=== PATIENT | female | born 1980 | race Caucasian/White ===

== ENCOUNTER 2024-11-25 16:26 | Outpatient (CLI) | payer BC, SELFPAY | END 2024-11-25 16:27 | disposition home or self-care (01) | LOC: NFLDREF 11-27 23:52 | PROVIDERS: PCP Family Medicine; Referring Provider Family Medicine; Visit Provider Family Medicine | DX: R30.0 Dysuria (principal); R35.89 Other polyuria; R39.9 Unspecified symptoms and signs involving the genitourinary system; N39.0 Urinary tract infection, site not specified | CPT/HCPCS: 87086; 87186 ==